=== PATIENT | male | born 2000 | race Caucasian/White ===

== ENCOUNTER 2024-10-22 08:30 | Emergency (ER) | payer OTHER, SELFPAY ==
--- OUTSIDE RECORDS SUMMARY | 2024-10-22 08:37 | XMS_ITS | Encounter Summary ---
Author Organization [facility] Healthcare Address [address] [place] [address] Care Team Providers Care Software Test Manager Name Role Phone Emery Barrow MD Primary Care Provider [phone] Encounter Details Date Type Department Care Team (Late st Contact Info) Description 02/15/2020 Telephone [facility] [place] [phone] [address] RDIN Social History Tobacco Use Types Packs/Day Years Used Date Smoking Tobacco: Never Smokeless Tobacco: Never Alcohol Use Standard Drinks/Week Comments No 0 (1 standard drink = 0.6 oz pur e alcohol) Sex and Gender Information Value Date Recorded Sex Assigned at Not on file 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
--- OUTSIDE RECORDS SUMMARY | 2024-10-22 08:37 | XMS_ITS | Encounter Summary ---
Author Organization [facility] Healthcare Address [address] [place] [address] Care Team Providers Care Iron Melter Name Role Phone Emery Barrow MD Primary Care Provider Encounter Details Date Type Department Care Team (Late st Contact Info) Description 08/16/2021 Telephone [facility] [place] [phone] Tamra Sims RDNC Social History Tobacco Use Types Packs/Day Years Used Date Smoking Tobacco: Never Smokeless Tobacco: Never Alcohol Use Standard Drinks/Week Comments No 0 (1 standard drink = 0.6 oz pur e alcohol) Sex and Gender Information Value Date Recorded Sex Assigned at Not on file 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
--- OUTSIDE RECORDS SUMMARY | 2024-10-22 08:37 | XMS_ITS | Encounter Summary ---
Author Organization [facility] Healthcare Address [address] [place] [address] Care Team Providers Care Production Welder Name Role Phone Emery Barrow MD Primary Care Provider Encounter Details Date Type Department Care Team (Late st Contact Info) Description 02/15/2021 Telephone [facility] [place] [phone] Roopa Olvera, [facility] Social History Tobacco Use Types Packs/Day Years Used Date Smoking Tobacco: Never Smokeless Tobacco: Never Alcohol Use Standard Drinks/Week Comments No 0 (1 standard drink = 0.6 oz pur e alcohol) Sex and Gender Information Value Date Recorded Sex Assigned at Not on file 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
--- OUTSIDE RECORDS SUMMARY | 2024-10-22 08:37 | XMS_ITS | Encounter Summary ---
Author Organization [facility] Healthcare Address [address] [place] [address] Care Team Providers Care Clothing Examiner Name Role Phone Emery Barrow MD Primary Care Provider Encounter Details Date Type Department Care Team (Late st Contact Info) Description 08/12/2019 Telephone [facility] [place]trasound [place] [phone] Edison Candelaria [facility] Social History Tobacco Use Types Packs/Day Years Used Date Smoking Tobacco: Never Smokeless Tobacco: Never Alcohol Use Standard Drinks/Week Comments No 0 (1 standard drink = 0.6 oz pur e alcohol) Sex and Gender Information Value Date Recorded Sex Assigned at Not on file 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
--- OUTSIDE RECORDS SUMMARY | 2024-10-22 08:37 | XMS_ITS | Clinical Summary ---
Author Organization [facility]spital Address [address] [place] [address] Care Team Providers Care Guest Relations Representative Name Role Phone Emery Barrow MD Primary Care Provider Allergies No known active allergies Medications oxyCODONE (ROXICODONE) 5 mg immediate release tabletIndicatio ns:Pain Take 1 tablet (5 mg total) by mouth every 4 (four) hours as needed for pain 10 tablet 1 Active Additional Information Patient not taking.Reported on 08/23/2022 acetaminophen (TYLENOL) 325 mg tabletIndicatio ns:Fever,Pain Take 2 tablets (650 mg total) by mouth every 6 (six) hours 30 tablet 1 Active Additional Information Patient not taking.Reported on 08/23/2022 oxybutynin (DITROPAN) 5 mg tablet Take 1 tablet (5 mg total) by mouth 3 (three) times a day as needed (bladder spasm) 30 tablet 1 1 Active Additional Information Patient not taking.Reported on 08/23/2022 ibuprofen (ADVIL,MOTRIN) 600 mg tablet Take 1 tablet (600 mg total) by mouth every 6 (six) hours as needed for pain 30 tablet 1 Active Additional Information Patient not taking.Reported on 08/23/2022 phenazopyridine (PYRIDIUM) 100 mg tablet Take 1 tablet (100 mg total) by mouth 3 (three) times a day as needed for urinary pain 9 tablet 1 Active Additional Information Patient not taking.Reported on 08/23/2022 Active Problems Problem Noted Date Diagnosed Date UPJ (ureteropelvic junction) obstruction 019 Resolved Problems Problem Noted Date Diagnosed Date Resolved Date Poison raudel dermatitis 06/17/20192020 Assessment & Plan (06/17/2019 9:01 AM CDT): Prednisone dose pack sent. Reviewed med SE & scheduling. Discussed cold compresses, cooler shower. To wear long sleeves/pants/shoes/socks when working in weedy areas. Discussed possiblity of secondary infection r/t scratching. To keep fingernails clean/short. Benadryl/Zyrtec may help with itching Wash clothes or bedding that have come in contact with plant oils Take a shower w rosmery dish soap to help remove oils when working out in yard/weeds. RTC if symptoms worsen To continue otc caladryl lotion. Cough 01/28/2019 06/17/2019 Elevated blood pressure reading 08/28/2018 06/17/2019 Bronchospasm 06/12/2017 06/17/2019 Overview (06/12/2017): 4-4-18 going to try albuterol inhaler with spacer Maxillary sinusitis 06/12/2017 06/17/19 20 Overview (06/12/2017): 4-4-18 thickening of X-rays & cough one month so Augmentin KL Chronic rhinitis 06/12/2017 06/17/2019 Overview (06/12/2017): Flonase Closed fracture of middle phalanx of finger 01/06/2014 06/17/2019 Immunizations Immunization Administration Dates Next Due DTaP 09/03/2007, 4,02/12/2003,12/11,2002 Flucelvax Influenza Quad 12/22/2018 HPV9 08/28/2018,05/01/2017,02/28/2017 Hep A, Pediatric 03/01/2021,08/26/2020 Hep B / HiB 02/12/2003 Hep B, Adolescent or Pediatric 2002,2002 Hib (PRP-T) 11/08/2003,2002,2002 IPV 09/03/2007, 4,2002,10/08 Influenza, Quadrivalent, Aurea l Culture-based MDCK, Antibiotic Free, Intramuscular 12/22/2018 Influenza, Quadrivalent, Aurea l Culture-based MDCK, Preservative Free, Antibiotic Free, Intramuscular 12/22/2018 Influenza, Quadrivalent, Spl it, Intramuscular 12/17/2016,12/19/2015 Influenza, Quadrivalent, Spl it, Preservative Free, Intramuscular 12/18/2019,12/13/2017 Influenza, Trivalent, IM (MDV) 5,12/23/2013,12/22/2012,12/16 MMR 09/03/2007,11/08/2003 Meningococcal Conjugate (Menveo) 08/28/2018 Meningococcal MCV4P (Menactra) 09/17/2013 Pfizer SARS-CoV-2 Monovalent Vaccination (12+ Yrs) PURPLE 07/03/2020,06/11/2020 Pneumococcal Conjugate 7-Valent 02/14/20 04,02/12/2003,2002,10/08 Tdap 09/17/2013 Varicella 09/03/2007,11/08/2003 Surgical History Surgery Date Site/Laterality Comments CLOSED REDUCTION FINGER FRACTURE 01/08/2014 LAPAROSCOPIC PYELOPLASTY 09/13/2020 left side. CYSTOSCOPY 04/10/2019 with stent removal Medical History Medical History Date Comments Migraines Asthma no albuterol sin ce winter 2017, never hospitalized Hydronephrosis s/p pyeloplasty COVID-19 vaccinated Pfizer , 07/03/20 UPJ (ureteropelvic junction) obstruction Family History Medical History Relation Name Comments Migraines Father Anesthesia problems Mother PONV Diabetes Mother Hypertension Mother PONV Mother Relation Name Status Comments Father Mother Social History Tobacco Use Types Packs/Day Years Used Date Smoking Tobacco: Never Smokeless Tobacco: Never Alcohol Use Standard Drinks/Week Comments No 0 (1 standard drink = 0.6 oz pur e alcohol) Sex and Gender Information Value Date Recorded Sex Assigned at Not on file 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 Gender Identity Not on file Sexual Orientation Not on file Obstetrics History Last Filed Vital Signs Vital Sign Reading Time Taken Comments Blood Pressure 114/60 02/16/2021 9:35 AM TAPE STRINGER Pulse 75 02/16/2021 9:35 AM TAPE STRINGER Temperature 36.2 C (97.2 F) 11/02/2020 12:15 PM CDT Respiratory Rate 12 11/02/2020 12:15 PM CDT Oxygen Saturation 75% 02/16/2021 9:35 AM TAPE STRINGER Inhaled Oxygen Concentration - - Weight 95.4 kg (210 lb 6.4 oz) 08/23/2022 9:16 A M CDT Height 183.3 cm (6' 0.17) 08/23/2022 9:16 AM CD T Body Mass Index 28.41 08/23/2022 9:16 AM CDT Plan of Treatment Health Maintenance Due Date Last Done Comments Depression Screening 2002 Hepatitis C Screening 2002 Meningococcal B Vaccine (1 o f 2 - Standard) 2018 Regular Well Visit/Exam 18-64 2020 DTaP/Tdap/Td Vaccine (7 - Td or Tdap) 09/18/2023 09/17/2013, 09/03/2007, 11/08/2003, Additional history exists Covid-19 Vaccine (2023-2 5 season) 2023 02/07/2021, 07/03/2020, 06/11/2020 Influenza Vaccine (#1) 2024 0, 12/22/2018, 12/22/2018, Additional history exists Hepatitis B Screening Completed 02/12/2003 , 2002, 2002 Pneumococcal vaccine <65 Completed 004, 02/12/2003, 2002, Additional history exists Varicella Vaccines Completed 09/03/2007, 11/08/2003 HPV Vaccines Completed 08/28/2018, 04/12, 02/28/2017 Medical Devices Explanted Type Area Production Line Welder Device Identifier Shelf Expiration Date Model / Serial / Lot [employer] [id number] Universa 5fr 28cm 145cm Soft Positioner Investigative Shopper Braid Tether - [id number] Implanted:Qty: 1 on 01/30/2019 by Benoit Rosario MD at [facility] Explanted:Qty: 1 on 03/02/2019 at [facility] Stent Left: Urethra [employer] 09/04/2021 [id number] / / [id number] [employer] [id number] Universa 5fr 28cm 145cm Soft Positioner Investigative Shopper Braid Tether - [facility] [place]-528 - [id number] Implanted:Qty: 1 on 09/13/2020 by Benoit Rosario MD at [facility] Explanted:Qty: 1 on 11/02/2020 by Benoit Rosario MD at [facility] Stent Left: Ureter [employer] 12/03/2021 [id number] / [id number] / [id number] [email or web address] 175-255 4.8fr 30cm Taper Tip Bladder Den Low Profile Large Inner Lumen Latex Free - [id number] Implanted:Qty: 1 on 01/30/2019 by Benoit Rosario MD at [facility] Explanted:Qty: 1 on 03/02/2019 at [facility] [email or web address] 05/27/2020 [id number] / / [id number] Description:Left Ureter [employer] [id number] Ramrod Classic 7fr 28cm Push Catheter Brenham Suture Open Tip Braid - [id number] Implanted:Qty: 1 on 03/02/2019 by Benoit Rosario MD at [facility] Explanted:Qty: 1 on 04/10/2019 at [facility] Left: Ureter [employer] 05/14/2022 [id number] / / [id number] Insurance [employer] ACCESS CHOICE [facility] Advance Directives For more information, please contact: [phone] Documents on File Type Date Recorded Patient Aircraft Navigator Expl anation ADVANCE DIRECTIVE 11/02/2020 1:41 PM ADVANCE DIRECTIVE 09/13/2020 7:14 AM * Full Code (Latest Code Status on File) Date Activated Date Inactivated Comments 11/02/2020 9:36 AM 11/02/2020 4:32 PM * Full Code Date Activated Date Inactivated Comments 09/13/2020 4:31 PM 09/14/2020 5:59 PM * Full Code Date Activated Date Inactivated Comments 09/13/2020 7:15 AM 09/13/2020 4:31 PM * Full Code Date Activated Date Inactivated Comments 04/10/2019 6:46 AM 04/10/2019 1:51 PM * Full Code Date Activated Date Inactivated Comments 03/02/2019 8:30 AM 03/02/2019 4:56 PM Care Teams Guest Relations Representative Relationship Specialty Start Date End Date Emery Barrow MD [address] [place] [address] PCP - General 06/08/16
--- OUTSIDE RECORDS SUMMARY | 2024-10-22 08:37 | XMS_ITS | Encounter Summary ---
Author Organization [facility] Healthcare Address [address] [place] [address] Care Team Providers Care Grill Chef Name Role Phone Emery Barrow MD Primary Care Provider Encounter Details Date Type Department Care Team (Late st Contact Info) Description 04/29/2019 Telephone [facility] [place]trasound [place] [phone] Roopa Olvera, [facility] Social History Tobacco Use Types Packs/Day Years Used Date Smoking Tobacco: Never Smokeless Tobacco: Never Alcohol Use Standard Drinks/Week Comments No 0 (1 standard drink = 0.6 oz pur e alcohol) Sex and Gender Information Value Date Recorded Sex Assigned at Not on file 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
[2024-10-22 08:40] VITALS: BP 152/88; PULSE 70; RESP 14; TEMP 36.6; O2SAT 100
--- NOTE | 2024-10-22 08:48 | ED.EAR ---
HPI - Ear Problem General Chief complaint: Ear Stated complaint: Right Ear Pain Time Seen by Provider: 10/22/24 08:43 Source: patient and RN notes reviewed Mode of arrival: ambulatory Limitations: no limitations History of Present Illness HPI Narrative: Patient presents today complaining of right ear pain since last night, worse since this morning. Also reports some mild muffling. Patient had been swimming last weekend at the [place]. Denies drainage, nasal congestion rhinorrhea, cough or sore throat. No OTC treatment prior to arrival. Currently rates his pain 2/10. Related Data Allergies Allergy/AdvReac Type Severity Reaction Status Date / Time ibuprofen AdvReac Intermediate Other Verified 10/22/24 08:45 PMFSH Comments At time of signature, I have reviewed and agree with nursing past medical, surgical, social and family history unless otherwise noted. Please see nursing chart for further information. There is no relevant family history pertinent to the presenting complaint Exam Narrative: GENERAL: Well-appearing, well-nourished, and in no acute distress. HEAD: Normocephalic, atraumatic. EYES: EOMI. No redness or drainage. Conjunctivae normal. ENT: Mucous membranes pink and moist. Nares clear. No rhinorrhea. Left ear normal. Right ear: TM is erythematous and bulging. Ear canal is mildly erythematous with some white debris. NECK: Normal AROM. Supple. No lymphadenopathy. CHEST: No respiratory distress. EXTREMITIES: Normal range of motion. No edema. SKIN: Warm, dry, no rash. Capillary refill normal. Normal skin turgor. NEURO: No focal deficits. Alert and oriented x3. Gait steady. PSYCH: Normal affect. No signs of depression or anxiety. Course Course Level of Care: Express Care Visit Vital Signs Vital signs: Vital Signs Temperature 97.8 F 10/22/24 08:40 Pulse Rate 70 10/22/24 08:40 Respiratory Rate 14 10/22/24 08:40 Blood Pressure 152/88 H 10/22/24 08:40 Pulse Oximetry 100 10/22/24 08:40 Oxygen Delivery Room Air 10/22/24 08:40 Temperature 97.8 F 10/22/24 08:40 Pulse Rate 70 10/22/24 08:40 Respiratory Rate 14 10/22/24 08:40 Blood Pressure 152/88 H 10/22/24 08:40 Pulse Oximetry 100 10/22/24 08:40 Oxygen Delivery Room Air 10/22/24 08:40 Reviewed Medical Decision Making MDM Narrative Medical decision making narrative: 24-year-old male patient presents today with right ear pain since last night some muffling. Denies drainage or any additional symptoms. No OTC treatment to arrival. Upon exam, patient has a erythematous and bulging TM and an mildly erythematous canal with some debris. He will be treated with amoxicillin Ciprodex for right otitis media and also presumed otitis externa. Vital signs stable. Anticipatory guidance given. Differential Diagnosis Differential Diagnosis: Otitis media, otitis externa, ruptured TM, serous otitis, cerumen impaction, URI Vital Signs Vital Signs: Vital Signs Temperature 97.8 F 10/22/24 08:40 Pulse Rate 70 10/22/24 08:40 Respiratory Rate 14 10/22/24 08:40 Blood Pressure 152/88 H 10/22/24 08:40 Pulse Oximetry 100 10/22/24 08:40 Oxygen Delivery Room Air 10/22/24 08:40 Temperature 97.8 F 10/22/24 08:40 Pulse Rate 70 10/22/24 08:40 Respiratory Rate 14 10/22/24 08:40 Blood Pressure 152/88 H 10/22/24 08:40 Pulse Oximetry 100 10/22/24 08:40 Oxygen Delivery Room Air 10/22/24 08:40 Critical Care Time Critical Care Time Critical Care Time: No Discharge Plan Discharge Clinical Impression: Acute right otitis media, Otitis externa of right ear Patient Disposition: Home Condition: Stable Instructions: Antibiotic Form, Swimmer's Ear (GEN), Ear Infection (GEN) Additional Instructions: Please take the amoxicillin and use the ear drops as directed. You have been diagnosed with an infection in your ear canal as well as behind your eardrum. Do not submerge your head in standing water such as pools, hot tubs, lakes, bathtubs, until the infection has resolved. Showering is fine. Do not use anything in the ear that can be irritating such as Q-tips, ear plugs, ear buds. Take Tylenol for pain if able. Follow-up with your PCP in 3 days if symptoms are not improving. Your blood pressure was elevated above 120/80 today at Urgent Care. This puts you above the threshold for follow up. Please schedule a followup visit with your personal physician as soon as possible, for further evaluation and treatment. Even blood pressure exceeding 120/80 may indicate pre-hypertension. Patient Language: Citizen Of [place] Prescriptions: New amoxicillin 875 mg tablet 875 mg PO Q12H 7 Days Qty: 14 0RF ciprofloxacin-dexamethasone 0.3-0.1 % drops,suspension 4 drp RIGHT EAR Q12H 7 Days Qty: 7.5 0RF Follow-up/Referrals: PHYSICIAN,FLIGHT ENGINEER INSTRUCTOR [Primary Care Provider] - Time of Disposition: 08:55
== END 2024-10-22 09:02 | disposition home or self-care (01) ==
PROVIDERS: Emergency Provider Nurse Practitioner
DX: H66.91 Otitis media, unspecified, right ear (principal); H60.91 Unspecified otitis externa, right ear
CPT/HCPCS: 99203; G0463